=== PATIENT | male | born 1985 | race Caucasian/White ===

== ENCOUNTER 2018-05-17 19:08 | Emergency (ER) | payer MEDICAID ==
[~2018-05-17] VITALS: Ht 185.4 cm; Wt 82.0 kg
[2018-05-17 19:15] VITALS: BP 126/70
== END 2018-05-17 19:30 | disposition home or self-care (01) ==
LOC: ED 19:24
DX: S21.111D Laceration without foreign body of right front wall of thorax without penetration into thoracic cavity, subsequent encounter (principal); F17.200 Nicotine dependence, unspecified, uncomplicated; F12.10 Cannabis abuse, uncomplicated; X58.XXXD Exposure to other specified factors, subsequent encounter
CPT/HCPCS: 99281; 99282

== ENCOUNTER 2019-10-16 15:30 | Emergency (ER) | payer SELFPAY ==
[~2019-10-16] VITALS: Ht 185.4 cm; Wt 100.2 kg
[2019-10-16 15:32] VITALS: BP 140/82
--- NOTE | 2019-10-16 15:45 | NUR ---
CHRISTELLE SUE EVALUATED PT IN TRIAGE/PIT AND CLEARED PT FOR DISCHARGE BY PROVIDER. PT PROVIDED DISCHARGE INSTRUCTIONS AND RX, VERBALIZED UNDERSTANDING, AMBULATED TO CHECKOUT DESK WITH STEADY GAIT. A&OX4 AT DISCHARGE. VSS. AIRWAY PATENT, ABLE TO SWALLOW AND CLEAR SECRETOINS WITHOUT ANY DIFFICULTY. MILD FACIAL SWELLING NOTED. DISCHARGED PER CHRISTELLE SUE.
== END 2019-10-16 15:50 | disposition home or self-care (01) ==
LOC: ED 15:40 → MERGE 15:40 → ED 15:50
DX: K08.89 Other specified disorders of teeth and supporting structures (principal)
CPT/HCPCS: 99283

== ENCOUNTER 2021-04-10 10:57 | Emergency (ER) | payer MEDICAID ==
--- NOTE | 2021-04-10 11:37 | NUR ---
NAX1
--- NOTE | 2021-04-10 11:50 | NUR ---
NA X2
--- NOTE | 2021-04-10 12:09 | NUR ---
NA X3
== END 2021-04-10 12:10 | disposition left against medical advice (07) ==
LOC: ED 12:05
DX: R51.9 Headache, unspecified (principal); R06.02 Shortness of breath; R43.9 Unspecified disturbances of smell and taste; Z53.21 Procedure and treatment not carried out due to patient leaving prior to being seen by health care provider

== ENCOUNTER 2021-04-16 21:52 | Emergency (ER) | payer MEDICAID ==
[~2021-04-16] VITALS: Ht 185.4 cm; Wt 76.4 kg
[2021-04-17 00:04] VITALS: BP 154/88
[2021-04-17 00:28] LABS: MICROSCOPIC INDICATED
== END 2021-04-17 00:14 | disposition home or self-care (01) ==
LOC: ED 23:59
DX: U07.1 COVID-19 (principal); F15.10 Other stimulant abuse, uncomplicated; R05 Cough; Z72.9 Problem related to lifestyle, unspecified; L73.9 Follicular disorder, unspecified; R21 Rash and other nonspecific skin eruption; Z87.891 Personal history of nicotine dependence
CPT/HCPCS: 71045; 81001; 87491; 87591; 99284; U0003; U0005